=== PATIENT | female | born 1995 | race Two or more races ===

== ENCOUNTER 2022-02-09 09:24 | Emergency (ER) | payer OTHER ==
[~2022-02-09] VITALS: Ht 162.6 cm; Wt 59.0 kg
[2022-02-09 09:24] VITALS: BP 130/77
--- NOTE | 2022-02-09 09:24 | NUR ---
BIBS C/O COVID LIKE SYMPTOMS - CHILLS, COUGH, UNABLE TO SLEEP X4 DAYS. VITALS ARE WITHIN NORMAL LIMITS. NO RESP DISTRESS NOTED.
[2022-02-09] MEDS ORDERED: GENT5DRO4 EACHEYE (09:35)
--- NOTE | 2022-02-09 09:42 | NUR ---
Patient discharged to home in stable condition. Written and verbal after care instructions given. Patient verbalizes understanding of instruction.
--- NOTE | 2022-02-09 09:42 | NUR ---
PT REFUSED PCR COVID TEST.
== END 2022-02-09 09:44 | disposition home or self-care (01) ==
LOC: ER 09:32
DX: H10.9 Unspecified conjunctivitis (principal); Z79.899 Other long term (current) drug therapy